=== PATIENT | female | born 1985 | race Hispanic/Latino ===

== ENCOUNTER 2018-05-23 23:13 | Emergency (ER) | payer SELFPAY | END 2018-05-24 00:10 | disposition home or self-care (01) | LOC: ERS 23:13 | DX: T33.532A Superficial frostbite of left finger(s), initial encounter (principal); T33.531A Superficial frostbite of right finger(s), initial encounter | CPT/HCPCS: 99283 ==

== ENCOUNTER 2018-06-06 22:27 | Emergency (ER) | payer SELFPAY ==
[2018-06-06] MEDS ORDERED: Acetaminophen 500 MG TAB ONE (23:56)
== END 2018-06-07 00:19 | disposition home or self-care (01) ==
LOC: ERS 22:27
DX: J01.90 Acute sinusitis, unspecified (principal)
CPT/HCPCS: 87804; 99283

== ENCOUNTER 2018-08-01 04:00 | Emergency (ER) | payer SELFPAY ==
[2018-08-01] MEDS ORDERED: Ibuprofen 800 MG TAB ONE (04:26)
== END 2018-08-01 04:25 | disposition home or self-care (01) ==
LOC: ERS 04:00
DX: M72.2 Plantar fascial fibromatosis (principal)
CPT/HCPCS: 99282

== ENCOUNTER 2019-02-06 15:59 | Emergency (ER) | payer SELFPAY ==
[2019-02-06] MEDS ORDERED: HYDROcodone/Acetaminophen 5/325 mg Tablet ONE (16:19)
== END 2019-02-06 16:25 | disposition home or self-care (01) ==
LOC: ERS 15:59
DX: M72.2 Plantar fascial fibromatosis (principal); F17.210 Nicotine dependence, cigarettes, uncomplicated
CPT/HCPCS: 99283

== ENCOUNTER 2019-09-05 13:10 | Emergency (ER) | payer SELFPAY | END 2019-09-05 13:48 | disposition left against medical advice (07) | LOC: ERS 13:10 | DX: Z53.21 Procedure and treatment not carried out due to patient leaving prior to being seen by health care provider (principal) ==

== ENCOUNTER 2021-03-07 16:46 | Emergency (ER) | payer SELFPAY ==
[2021-03-07] MEDS ORDERED: Ketorolac Tromethamine 30 MG/ML VIAL ONE (16:59)
[2021-03-07] MEDS ORDERED: Acetaminophen 500 MG TAB ONE (16:59)
== END 2021-03-07 18:20 | disposition home or self-care (01) ==
LOC: ERS 16:46
DX: R07.9 Chest pain, unspecified (principal); F17.200 Nicotine dependence, unspecified, uncomplicated
CPT/HCPCS: 71045; 93005; 96372; J1885

== ENCOUNTER 2021-10-01 19:58 | Emergency (ER) | payer SELFPAY ==
[2021-10-02 14:53] LABS: SARS-CoV-2 NAA Rapid Test DETECTED (NotDetected)
== END 2021-10-01 20:29 | disposition home or self-care (01) ==
LOC: ERS 19:58
DX: U07.1 COVID-19 (principal); F17.200 Nicotine dependence, unspecified, uncomplicated
CPT/HCPCS: 99283; U0002

== ENCOUNTER 2023-09-18 19:38 | Emergency (ER) | payer SELFPAY ==
[2023-09-18] MEDS ORDERED: Ibuprofen 800 MG TAB ONE (20:58)
== END 2023-09-18 22:49 | disposition home or self-care (01) ==
LOC: ERS 19:38
DX: M76.61 Achilles tendinitis, right leg (principal); X50.0XXA Overexertion from strenuous movement or load, initial encounter; Y93.02 Activity, running

== ENCOUNTER 2023-10-04 17:40 | Emergency (ER) | payer OTHER ==
[2023-10-04] MEDS ORDERED: Lidocaine 1% PF 5 ML VIAL ONE (18:53)
== END 2023-10-04 19:56 | disposition home or self-care (01) ==
LOC: ERS 17:40
DX: S01.81XA Laceration without foreign body of other part of head, initial encounter (principal); W01.0XXA Fall on same level from slipping, tripping and stumbling without subsequent striking against object, initial encounter
CPT/HCPCS: 12011; 99282

== ENCOUNTER 2023-10-05 21:46 | Emergency (ER) | payer OTHER | END 2023-10-05 23:48 | disposition home or self-care (01) | LOC: ERS 21:46 | DX: S01.81XD Laceration without foreign body of other part of head, subsequent encounter (principal); M25.552 Pain in left hip; M25.561 Pain in right knee; W01.0XXD Fall on same level from slipping, tripping and stumbling without subsequent striking against object, subsequent encounter | CPT/HCPCS: 70450 ==

== ENCOUNTER 2023-10-16 12:43 | Emergency (ER) | payer OTHER | END 2023-10-16 16:11 | disposition left against medical advice (07) | LOC: ERS 12:43 | DX: Z53.21 Procedure and treatment not carried out due to patient leaving prior to being seen by health care provider (principal) ==

== ENCOUNTER 2023-11-15 03:14 | Emergency (ER) | payer OTHER | END 2023-11-15 04:17 | disposition home or self-care (01) | LOC: ERS 03:14 | DX: F43.0 Acute stress reaction (principal); F17.210 Nicotine dependence, cigarettes, uncomplicated; I25.10 Atherosclerotic heart disease of native coronary artery without angina pectoris | CPT/HCPCS: 93005 ==